=== PATIENT | male | born 1985 | race Caucasian/White ===

== ENCOUNTER 2018-07-05 17:49 | Emergency (ER) | payer OTHER ==
--- NOTE | 2018-07-05 19:09 | EDPHY ---
H & P Stated Complaint: Head inj Time Seen by Provider: 07/05/18 19:09 HPI/ROS: HPI CHIEF COMPLAINT: Fall, head injury, headache HISTORY OF PRESENT ILLNESS: Patient is a 32-year-old male, he is otherwise healthy, he presents emergency room with a headache. It is frontal throbbing in nature. He fell and hit his head while [place]. He fell at noon. He was helmeted no LOC no vomiting. His at bedside notice that his pupils were unequal she appreciate that his left pupil was bigger than the right pupil approximately 1 mm. She has never noticed this before. They went to urgent care was referred here to the emergency room. He denies any chest pain, shortness of breath, denies fever, denies vomiting denies double vision blurry vision. Past Medical History: Denies significant medical history Past Surgical History: Denies significant surgical history Social History: Denies daily use of drugs alcohol tobacco. Family History: Noncontributory ROS REVIEW OF SYSTEMS: 10 Systems were reviewed and negative with the exception of the elements mentioned in the history of present illness. Exam Constitutional triage nursing summary reviewed, vital signs reviewed, awake/ alert. Eyes pupil right 4 mm and reactive to light on the right eye, pupil left eye 5 mm react to light, both reactive to accommodation. HENT normal inspection, atraumatic, moist mucus membranes, no epistaxis, neck supple/ no meningismus, no raccoon eyes. Respiratory clear to auscultation bilaterally, normal breath sounds, no respiratory distress, no wheezing. Cardiovascular rate normal, regular rhythm, no murmur, no edema, distal pulses normal. Gastrointestinal soft, non-tender, no rebound, no guarding, normal bowel sounds, no distension, no pulsatile mass. Genitourinary no CVA tenderness. Musculoskeletal no midline vertebral tenderness, full range of motion, no calf swelling, no tenderness of extremities, no meningismus, good pulses, neurovascularly intact. Skin pink, warm, & dry, no rash, skin atraumatic. Neurologic awake, alert and oriented x 3, AAOx3, moves all 4 extremities equally, motor intact, sensory intact, CN II-XII intact, normal cerebellar, normal vision, normal speech. Psychiatric normal mood/affect. Heme/Lymph/Immune no lymphadenopathy. Differential Diagnosis: Includes but is not limited to in a particular order closed-head injury, concussion, intracranial bleed, subdural, epidural, traumatic subarachnoid Medical Decision Making: Plan for this patient CT scan head without contrast, I have offered Tylenol and/or Motrin however patient has declined. Re-evaluation: CT scan head without contrast called to me by Dr. Patton. This is negative for acute traumatic injury specifically no bleed. Updated patient about CT results. I do feel that he has a closed head injury/ concussion. Concussion painful be given to him. Discussed return precautions with him he understands return to the emergency room if develops worsening headache, vomiting, fever, not doing well. I do recommend 3 days of rest. Alternate Tylenol and Motrin for pain control return if worse. He is comfortable this plan. Source: Patient - Personal History Current Tetanus/Diphtheria Vaccine: Yes - Medical/Surgical History Hx Asthma: No Hx Chronic Respiratory Disease: No Hx Diabetes: No Hx Cardiac Disease: No Hx Renal Disease: No Hx Cirrhosis: No Hx Alcoholism: No Other PMH: Asthma - Social History Smoking Status: Never smoked Constitutional: Initial Vital Signs Temperature (C) 36.6 C 07/05/18 17:57 Heart Rate 74 07/05/18 17:57 Respiratory Rate 18 07/05/18 17:57 Blood Pressure 115/72 07/05/18 17:57 O2 Sat (%) 95 07/05/18 17:57 O2 Delivery Mode Room Air Allergies/Adverse Reactions: No Known Allergies Allergy (Unverified 07/05/18 17:59) Home Medications: Medication Instructions Recorded Dulera 200 Mcg/5 Mcg Inhaler 07/05/18 Medical Decision Making - Diagnostics Imaging Results: Imaging Impressions Head CT 07/05/18 19:15 Impression: No acute intracranial findings. Findings discussed with Esteban Villarreal MD 07/05/2018 at 19:50. Departure - Departure Disposition: Home, Routine, Self-Care Clinical Impression: Head injury, Concussion Condition: Good Instructions: Concussion (ED), Head Injury (ED) Additional Instructions: 1. Stay well-hydrated drink lots of fluids and rest. I do recommend 3 days of rest. 2. Return emergency room if develops worsening symptoms includes worsening headache, vomiting, not doing well Referrals: NONE *PRIMARY CARE P,. [Primary Care Provider] - As per Instructions Soni Farr MD [Medical Doctor] - As per Instructions
[2018-07-05 20:15] VITALS: BP 112/87
== END 2018-07-05 20:16 | disposition home or self-care (01) ==
DX: S06.0X0A Concussion without loss of consciousness, initial encounter (principal); V00.321A Fall from snow-skis, initial encounter; Y93.24 Activity, cross country skiing; Y92.828 Other wilderness area as the place of occurrence of the external cause